=== PATIENT | male | born 1940 | race Caucasian/White ===

== ENCOUNTER 2021-12-06 16:26 | Inpatient (IN) | payer OTHER ==
[~2021-12-06] VITALS: Ht 185.4 cm; Wt 77.1 kg
[2021-12-06 16:30] VITALS: BP_SYST 105
--- NOTE | 2021-12-06 16:42 | NUR ---
COVID-19 ANTIGEN TEST TAKEN AND SENT TO LAB AT 16:42.
[2021-12-06] MEDS ORDERED: ALBUTEROL SULFATE 0.083% 2.5 MG/3 ML VIAL.NEB INH ONE (16:45)
[2021-12-06] MEDS ORDERED: IPRATROPIUM BROM 0.5 MG/2.5 ML VIAL.NEB (ATROVENT) INH ONE (16:45)
--- NOTE | 2021-12-06 16:46 | NUR ---
- Ms. Patti [phone]
[2021-12-06 17:19] LABS: BASOPHILS # (AUTO) 0.1 K/uL (0.0-0.2); BASOPHILS % (AUTO) 0.5 % (0.0-2.0); EOSINOPHILS # (AUTO) 0.2 K/uL (0.0-0.4); EOSINOPHILS % (AUTO) 1.2 % (0.0-4.0); HEMATOCRIT 38.5 % (36-54); LYMPHOCYTES # (AUTO) 1.5 K/uL (1.0-5.5); LYMPHOCYTES % (AUTO) 11.7 % (20.5-51.5); MEAN CORPUSCULAR VOLUME 90 fL (79.0-98.0); MONOCYTES # (AUTO) 1.5 K/uL (0.0-1.0); MONOCYTES % (AUTO) 11.9 % (1.7-9.3); NEUTROPHILS # (AUTO) 9.7 K/uL (1.8-7.7); NEUTROPHILS % (AUTO) 74.7 % (40.0-70.0); PLATELET COUNT (AUTO) 523 K/uL (130-430); RED BLOOD CELL COUNT(AUTO) 4.28 MIL/uL (4.2-6.2); RED CELL DISTRIBUTION WIDTH 13.7 % (9.0-15.0)
[2021-12-06 18:16] LABS: ANION GAP 11 (5-15); CALCIUM 8.2 mg/dL (8.4-11.0); CHLORIDE 100 mmol/L (98-107); CREATININE 1.36 mg/dL (0.55-1.30); GLUCOSE 195 mg/dL (70-99); POTASSIUM 3.8 mmol/L (3.5-5.1); UREA NITROGEN, BLOOD 23 mg/dL (8-21)
[2021-12-06 18:29] LABS: ALANINE AMINOTRANSFERASE 8 U/L (12-78); ALBUMIN 1.5 g/dL (3.4-4.8); ASPARTATE AMINOTRANSFERASE 20 U/L (10-37); TOTAL BILIRUBIN 0.7 mg/dL (0.0-1.0)
--- NOTE | 2021-12-06 19:50 | NUR ---
PROVIDED PT WITH BLANKETS AND PILLOW FOR COMFORT
--- NOTE | 2021-12-06 20:40 | NUR ---
MADE PT AWARE WE ARE WAITING ON RESPONSE FROM [facility] FOR ROOM AVAILABILITY
--- NOTE | 2021-12-06 21:04 | NUR ---
PT APPEARS TO BE RESTING COMFORTABLY, NO ACUTE DISTRESS NOTE, VSS
--- NOTE | 2021-12-06 21:44 | NUR ---
Admit bed requested Patient will be admitted to care of [ROBIN]. Admitted to [TELE] unit. Diagnosis [COPD EXACERBATION] Inpatient (Yes or No) [YES] Observation (Yes or No) [NO] Orientation concerns or request close to nursing station (Yes or No) [NO] Covid Status [NEGATIVE] On vent or bipap [NO] Isolation requirements [NO] Needs a sitter [NO] From Home (Yes or if No enter name of facility) [YES] Requires Dialysis (Yes or No) [NO] Med Rec Completed (Yes of No) [NO]
[2021-12-06] MEDS ORDERED: ZOLPIDEM TARTRATE 5 MG TABLET PO PRN (21:45)
[2021-12-06] MEDS ORDERED: MORPHINE 2 MG/ML INJ. SYRINGE IVP PRN ×2 (21:45)
[2021-12-06] MEDS ORDERED: methylPREDNISolone SOD SUCC 500 MG/VIAL (Solu-MEDROL) IV SCH (21:45)
[2021-12-06] MEDS ORDERED: DOCUSATE SODIUM 100 MG CAPSULE PO PRN (21:45)
[2021-12-06] MEDS ORDERED: ONDANSETRON HCL 4 MG/2 ML VIAL IVP PRN (21:45)
[2021-12-06] MEDS ORDERED: PIPERACILLIN/TAZO 3.375 GM in NS 50 ML IV SCH (21:45)
[2021-12-06] MEDS ORDERED: MUPIROCIN 2% TOPICAL OINTMENT 22 GM NS PRN (21:45)
[2021-12-06] MEDS ORDERED: POTASSIUM CHLORIDE 20 MEQ TAB.PRT.SR PO PRN (21:45)
[2021-12-06] MEDS ORDERED: MAGNESIUM SULFATE 50 ML IV PRN (21:45)
[2021-12-06] MEDS ORDERED: ACETAMINOPHEN 325 MG TABLET PO PRN (21:45)
[2021-12-06] MEDS ORDERED: LORazepam 2 MG/ML VIAL IVP PRN (21:45)
[2021-12-06] MEDS ORDERED: DEXTROSE 50% JECT 50 ML DISP.SYRIN IVP PRN (22:00)
--- NOTE | 2021-12-06 22:50 | NUR ---
Patient will be admitted to care of DR. KELLY. Admitted to TELE unit. Will go to room 118B. Belongings list completed. Complete and up to date summary report printed. SBAR report to be given at bedside with opportunity for questions.
--- NOTE | 2021-12-06 23:00 | NUR ---
ADMISSION NOTE Received patient from ER via gurney. Patient admitted with diagnosis of COPD EXACERBATION. Patient is awake, alert, oriented X 4. Patient oriented to hospital room, call light, toileting, pain management and safety-teach back done. Patient informed that their room number is 118b. Personal belongings checked and Belongings List documented. Call light within reach.
[2021-12-06 23:28] VITALS: BP_SYST 112
[2021-12-06] MEDS ORDERED: PIPERACILLIN/TAZOBACTAM 3.375 GM/VIAL (ZOSYN) IV ONE (23:41)
[2021-12-07] MEDS: NACL 0.9% 1,000 ML IV SCH ×2 (00:25→12:03)
[2021-12-07] MEDS: PIPERACILLIN/TAZO 3.375 GM in NS 50 ML IV SCH ×5 (00:47→21:41)
[2021-12-07 04:00] VITALS: BP_SYST 127
[2021-12-07 06:55] LABS: BASOPHILS % (AUTO) 0.3 % (0.0-2.0); EOSINOPHILS % (AUTO) 0.3 % (0.0-4.0); HEMATOCRIT 37.5 % (36-54); LYMPHOCYTES % (AUTO) 8.7 % (20.5-51.5); MEAN CORPUSCULAR VOLUME 90 fL (79.0-98.0); MONOCYTES # (AUTO) 1.7 K/uL (0.0-1.0); MONOCYTES % (AUTO) 14.5 % (1.7-9.3); NEUTROPHILS # (AUTO) 9.1 K/uL (1.8-7.7); NEUTROPHILS % (AUTO) 76.2 % (40.0-70.0); PLATELET COUNT (AUTO) 512 K/uL (130-430); RED BLOOD CELL COUNT(AUTO) 4.18 MIL/uL (4.2-6.2)
[2021-12-07 07:18] LABS: ANION GAP 12 (5-15); CALCIUM 7.9 mg/dL (8.4-11.0); CHLORIDE 101 mmol/L (98-107); CREATININE 1.25 mg/dL (0.55-1.30); GLUCOSE 156 mg/dL (70-99); POTASSIUM 3.8 mmol/L (3.5-5.1); UREA NITROGEN, BLOOD 20 mg/dL (8-21)
--- NOTE | 2021-12-07 07:26 | NUR ---
OPENING NOTE PT IN BED, SLEEPING WITH RESPIRATIONS EVEN, REGULAR, AND NON-LABORED. IV SITES REMAIN CLEAN AND INTACT. NO S/S OF INFILTRATION OR INFECTION NOTED. NO S/S OF PAIN OR DISCOMFORT NOTED. BED IS LOCKED AND AT LOWEST POSITION. SAFETY PRECAUTION OBSERVED. CALL LIGHT WITHIN REACH. WILL CONTINUE TO MONITOR.
[2021-12-07 08:00] VITALS: BP_SYST 112
[2021-12-07] MEDS ORDERED: guaiFENesin/DEXTROMETHORPHAN 118 ML PO PRN (08:30)
[2021-12-07] MEDS ORDERED: guaiFENesin/DEXTROMETHORPHAN 10 ML UDC PO PRN (08:45)
[2021-12-07] MEDS: HEPARIN SODIUM,PORCINE 5,000 UNITS/ML VIAL SUBCUT SCH ×2 (08:58→21:40)
[2021-12-07] MEDS ORDERED: methylPREDNISolone SOD SUCC/PF 62.5 MG/ML VIAL IVP SCH (09:00)
--- NOTE | 2021-12-07 10:00 | NUR ---
AMBULATION PT AMBULATES WITH ASSISTANCE TO BATHROOM.
[2021-12-07] MEDS: INSULIN LISPRO SLIDING SCALE 100 UNITS/ML, 3 ML VIAL (humaLOG) SUBCUT PRN ×3 (11:04→21:41)
[2021-12-07 12:00] VITALS: BP_SYST 134
--- NOTE | 2021-12-07 12:00 | NUR ---
IV SITE CHANGE PREVIOUS IV REMOVED DUE TO HIGH PRESSURE ALARM DESPITE OF SEVERAL TIMES OF FLUSHING. NEW PIV TO RIGHT HAND INITIATED BY USING ASEPTIC TECHNIQUE. FLUSHED WITH 10CC NS, GOOD BLOOD RETURN NOTED. PT DENIES PAIN/DISCOMFORT TO THE SITE. WILL CONTINUE TO MONITOR.
[2021-12-07] MEDS: METHYLPREDNISOLONE SOD SUCC 40 MG/ML VIAL IVP SCH ×2 (14:25→21:39)
--- NOTE | 2021-12-07 14:30 | NUR ---
RT O2 AT 96% O2 4L VIA NC. PT REQUESTS BREATHING TREATMENT. RT CALLED AND AT BEDSIDE.
[2021-12-07 16:00] VITALS: BP_SYST 119
[2021-12-07 20:00] VITALS: BP_SYST 127
[2021-12-07] MEDS: IPRATROPIUM/ALBUTEROL SULFATE 3 ML AMPUL.NEB (DUONEB) INH PRN (20:21)
[2021-12-08 00:52] VITALS: BP_SYST 126
[2021-12-08] MEDS: METHYLPREDNISOLONE SOD SUCC 40 MG/ML VIAL IVP SCH ×2 (04:05→08:54)
[2021-12-08] MEDS: PIPERACILLIN/TAZO 3.375 GM in NS 50 ML IV SCH ×2 (04:06→10:08)
[2021-12-08] MEDS: INSULIN LISPRO SLIDING SCALE 100 UNITS/ML, 3 ML VIAL (humaLOG) SUBCUT PRN ×2 (06:10→11:48)
[2021-12-08 07:37] LABS: BASOPHILS % (AUTO) 0.1 % (0.0-2.0); HEMATOCRIT 35.4 % (36-54); LYMPHOCYTES # (AUTO) 0.7 K/uL (1.0-5.5); LYMPHOCYTES % (AUTO) 11.4 % (20.5-51.5); MEAN CORPUSCULAR VOLUME 90 fL (79.0-98.0); MONOCYTES # (AUTO) 0.5 K/uL (0.0-1.0); MONOCYTES % (AUTO) 8.4 % (1.7-9.3); NEUTROPHILS # (AUTO) 5.2 K/uL (1.8-7.7); NEUTROPHILS % (AUTO) 80.1 % (40.0-70.0); PLATELET COUNT (AUTO) 430 K/uL (130-430); RED BLOOD CELL COUNT(AUTO) 3.93 MIL/uL (4.2-6.2); RED CELL DISTRIBUTION WIDTH 13.7 % (9.0-15.0); WHITE BLOOD COUNT (AUTO) 6.5 K/uL (4.8-10.8)
[2021-12-08 08:00] VITALS: BP_SYST 138
[2021-12-08] MEDS ORDERED: PRED20TA PO (08:15)
[2021-12-08] MEDS ORDERED: LEVO-62 PO (08:15)
[2021-12-08 08:35] LABS: ANION GAP 10 (5-15); CALCIUM 7.8 mg/dL (8.4-11.0); CHLORIDE 103 mmol/L (98-107); CREATININE 1.07 mg/dL (0.55-1.30); GLUCOSE 234 mg/dL (70-99); POTASSIUM 3.6 mmol/L (3.5-5.1); UREA NITROGEN, BLOOD 23 mg/dL (8-21)
[2021-12-08] MEDS: HEPARIN SODIUM,PORCINE 5,000 UNITS/ML VIAL SUBCUT SCH (08:56)
[2021-12-08] MEDS: NACL 0.9% 1,000 ML IV SCH (08:57)
[2021-12-08] MEDS: IPRATROPIUM/ALBUTEROL SULFATE 3 ML AMPUL.NEB (DUONEB) INH PRN ×2 (09:14→15:17)
--- NOTE | 2021-12-08 09:39 | NUR ---
Discharge Planning: DCP faxed pt referral to [facility] [phone] DCP to follow up
[2021-12-08 12:00] VITALS: BP_SYST 141
[2021-12-08 14:38] VITALS: BP_SYST 148
--- NOTE | 2021-12-10 08:24 | NUR ---
Dispo code 06
== END 2021-12-08 16:00 | disposition home health service (06) | DRG 871 ==
LOC: SED 16:26 → STU 21:43 → SMU 22:50 → STU 12-07 07:01
PROVIDERS: ADMIT General Practice; ATTEND General Practice
DX: A41.9 Sepsis, unspecified organism (principal); E43 Unspecified severe protein-calorie malnutrition; J96.21 Acute and chronic respiratory failure with hypoxia; J69.0 Pneumonitis due to inhalation of food and vomit; N17.0 Acute kidney failure with tubular necrosis; J44.1 Chronic obstructive pulmonary disease with (acute) exacerbation; Z20.822 Contact with and (suspected) exposure to COVID-19; D72.829 Elevated white blood cell count, unspecified; E11.65 Type 2 diabetes mellitus with hyperglycemia; I10 Essential (primary) hypertension; Z88.8 Allergy status to other drugs, medicaments and biological substances; Z79.899 Other long term (current) drug therapy; Z68.22 Body mass index [BMI] 22.0-22.9, adult
CPT/HCPCS: 36415; 71045; 80048; 80053; 82962; 83036; 83605; 83735; 83880; 85025; 87040; 93005; 94640; 94760; 96365; 99285; G0378; J1030; J1644; J1956; J2543; J2930